=== PATIENT | female | born 1975 | race Two or more races ===

== ENCOUNTER 2024-05-05 20:57 | Emergency (ER) | payer MEDICAID, SELFPAY ==
[2024-05-05 21:06] VITALS: BP 155/83; PULSE 70; RESP 19; TEMP 37.7; O2SAT 98
--- NOTE | 2024-05-05 21:22 | PD.EDABDPN ---
ED Abdominal Pain RME/HPI General Chief Complaint: Abdominal Pain Stated complaint: LOWER ABD PAIN Time seen by provider: 05/05/24 21:10 Arrival date/time: 05/05/24 20:57 RME / HPI RME / HPI narrative: This section includes all my notes and documentations, including HPI, PE, and ED course. Soy Adam MD HPI: 48yo female presents to the ED for a chief complaint of lower abdominal pain x 2 days. Has difficulty localizing the pain further. Patient describes the pain as stabbing in nature. No radiation or migration. She reports associated chills. She denies any N/V, fever or any other associated symptoms. Denies any history of similar symptoms. PSH includes cholecystectomy. No other complaints reported. ROS: All negative except as documented in HPI. Physical Exam: General: Alert and oriented. Appears uncomfortable. Eyes: Conjunctivae and lids clear. ENT: No nasal congestion. Neck: Supple. Heart: RRR. Lungs: No respiratory distress. Good air movement. No rhonchi, wheezing, rales. Abdomen: Soft with tenderness, difficult to localize. Legs: No clubbing, cyanosis, edema. Skin: Warm and dry. Neuro: Alert and oriented X 3. I reviewed all diagnostic test results. My review of the pelvic US report is no acute findings. My review of the abdominal CT report is umbilical hernia. Blood tests and urine tests unremarkable. At this point, diagnoses include abdominal pain, most likely due to umbilical hernia. Treatment here included Zofran, Ibuprofen, Tylenol with Codeine, NS, Dilaudid. Significant improvement noted. Recommended more outpatient workup. Based on my best medical judgment, made decision no further evaluation or treatment indicated at this time. Patient understands and agrees to the discharge instructions customized and printed, see below. Discharge Instructions from Dr. Adam printed for you: 1. After extensive evaluation, there is no emergency such as appendicitis needing urgent surgery. 2. You have 3 cm umbilical hernia, this probably caused her severe pain, see attached handout. 3. Zofran for nausea/vomiting. Tylenol with codeine for severe pain. 4. Avoid increased pressure in your abdomen, from lifting heavy objects or pushing too hard during bowel movements. 5. See a private doctor on 05/07/2024 for recheck and further care. Ask to review all test results and official radiology reports, to make sure you receive all necessary follow-ups and monitoring. Ask for help with referrals to see specialists, such as general surgeon and stars specialist. 6. Seek immediate medical care with worsening or with any concerns. Soy Adam MD Related Data Previous Rx's ?Medication ?Instructions ?Recorded acetaminophen 300 mg-codeine 30 mg 2 tab PO TID PRN pain #20 tabs 05/06/24 tablet ondansetron 4 mg disintegrating 4 mg PO TID PRN nausea and 05/06/24 tablet vomiting 5 days #10 tabs Allergies Allergy/AdvReac Type Severity Reaction Status Date / Time No Known Allergies Allergy Verified 05/05/24 20:58 Review of Systems Review of Systems Systems Reviewed: All systems reviewed, normal except as documented Past Medical History Social History SMOKING STATUS: Never smoker ED Exam Narrative Physical exam: As noted in HPI. Course Quality Measures none Orders Category Date Time Status Saline [Insert IV] NOW Care 05/05/24 23:[address] abdomen pelvis wo con Stat Exams 05/05/24 21:23 Completed US pelvic complete Stat Exams 05/05/24 23:19 Taken CBC Stat Lab 05/05/24 21:41 Completed CMP [Comprehensive Metabolic Panel] Stat Lab 05/05/24 21:41 Completed HCG Qualitative,Urine Stat Lab 05/05/24 22:35 Completed Magnesium Stat Lab 05/05/24 21:41 Completed UA, C/S IF [Urinalysis, C/S if Indicated] Stat Lab 05/05/24 22:35 Completed Urine Culture Stat Lab 05/05/24 22:35 Received ACETAMINOPHEN w/COD 300-30 [Tylenol w/Cod #3] Med 05/05/24 21:27 Discontinued 2 tab PO X1 ONE HYDROmorphone INJ [Dilaudid Inj] Med 05/05/24 23:19 Discontinued 1 mg IVP X1 ONE Ibuprofen Tab [Motrin Tab] Med 05/05/24 21:27 Discontinued 800 mg PO X1 ONE Ondansetron Inj [Zofran Inj] Med 05/05/24 23:19 Discontinued 4 mg IV X1 ONE Ondansetron Odt [Zofran Odt] Med 05/05/24 21:27 Discontinued 4 mg PO X1 ONE Sodium Chloride 0.9% 1000 ml [Ns] 1,000 ml Med 05/05/24 23:19 Discontinued IV 999 mls/hr Vital Signs Vital signs: Vital Signs Temperature 99.8 F 05/05/24 21:06 Pulse Rate 70 05/05/24 21:06 Respiratory Rate 19 05/05/24 21:06 Blood Pressure 155/83 H 05/05/24 21:06 Pulse Oximetry (%) 98 05/05/24 21:06 Oxygen Delivery Method Room Air 05/05/24 21:06 Abdominal Pain MDM MDM Narrative MDM Narrative:: Scribe Attestation: 05/05/24 Love Zacarias am scribing for and in the presence of Dr. Adam. Patient data External records reviewed:: [facility] previous records (Per chart review, patient has no previous ED visits or admissions to this facility.) Clinical information provided by:: patient Social determinants that could affect healthcare access:: none Patient has the following chronic illnesses:: none How is presenting disease/condition affected by chronic disease/condition?: no chronic disease Evaluation data The following diagnostics were reviewed and interpreted by me:: lab results and radiology exam(s) Lab and/or radiology exams considered but not ordered:: none Interpretation Summary: Umbilical hernia Medications / Prescriptions Medications or Prescriptions considered but not ordered:: none Medication administrations:: Medication Administration History Discontinued Medications Acetaminophen/Codeine Phosphate (Acetaminophen W/Cod 300-30 Tablet) 2 tab PO X1 ONE Stop: 05/05/24 21:28 Last Admin: 05/05/24 21:42 Dose: 2 tab Documented By: EO Hydromorphone HCl (Hydromorphone Inj 2 Mg/Ml Vial) 1 mg IVP X1 ONE Stop: 05/05/24 23:20 Last Admin: 05/05/24 23:57 Dose: 1 mg Documented By: RAFA Sodium Chloride (Ns) 1,000 mls @ 999 mls/hr IV .Q1H1M ONE Stop: 05/06/24 00:19 Last Infusion: 05/06/24 01:13 Dose: Infused Documented By: Admin: 05/05/24 23:57 Dose: 999 mls/hr Documented By: RAFA Ibuprofen (Ibuprofen Tab 400 Mg Tablet) 800 mg PO X1 ONE Stop: 05/05/24 21:28 Last Admin: 05/05/24 21:42 Dose: 800 mg Documented By: EO Ondansetron HCl (Ondansetron Odt 4 Mg Tabrap) 4 mg PO X1 ONE; Protocol Stop: 05/05/24 21:28 Last Admin: 05/05/24 21:43 Dose: 4 mg Documented By: EO Ondansetron HCl (Ondansetron Inj 2 Mg/Ml Inj 2 Ml) 4 mg IV X1 ONE; Protocol Stop: 05/05/24 23:20 Last Admin: 05/05/24 23:57 Dose: 4 mg Documented By: KD Zofran, Ibuprofen, Tylenol with Codeine, NS, Dilaudid Consultations Consultation(s) initiated? (list below): No Diagnosis Differential diagnosis abdominal pain: acute appendicitis, calculus of kidney, constipation, diverticulitis, endometriosis, gastroenteritis and small bowel obstruction Most likely diagnosis given after review of the tests above:: Umbilical hernia Admission Indicated Admission indicated?: not indicated Explain why admission is indicated or not indicated:: No criteria for admission. Admission Request Was there a request for admission?: No Disposition Plan Disposition Plan: Discharge Discharge Attestation Discharge Attestation: The patient and all family members were given an opportunity to ask questions and understood the discharge instructions. Discharge instructions specifically effects, indications for sooner follow up or return to the emergency department, and the expected course of current diagnosis. Patient condition: Stable Discharge Plan Plan Patient Disposition: HOME (Self Care) Prescriptions/Referrals Prescriptions/Med Rec: New acetaminophen-codeine 300-30 mg tablet 2 tab PO TID MDD 6 PRN (Reason: pain) Qty: 20 0RF ondansetron 4 mg tablet,disintegrating 4 mg PO TID PRN (Reason: nausea and vomiting) 5 Days Qty: 10 0RF Referrals: Charles Gray PA-C [Primary Care Provider] - In 1 week Problem List Clinical Impression: Abdominal pain Patient/Caregiver Discharge Instructions Discharge Activity: activity as tolerated Education Materials: ED Hernia (Adult) Additional Instructions: Discharge Instructions from Dr. Adam printed for you: 1. After extensive evaluation, there is no emergency such as appendicitis needing urgent surgery. 2. You have 3 cm umbilical hernia, this probably caused her severe pain, see attached handout. 3. Zofran for nausea/vomiting. Tylenol with codeine for severe pain. 4. Avoid increased pressure in your abdomen, from lifting heavy objects or pushing too hard during bowel movements. 5. See a private doctor on 05/07/2024 for recheck and further care. Ask to review all test results and official radiology reports, to make sure you receive all necessary follow-ups and monitoring. Ask for help with referrals to see specialists, such as general surgeon and stars specialist. 6. Seek immediate medical care with worsening or with any concerns. Instrucciones de sherin del Dr. Adam impresas para usted: 1. Despu?s de wilver evaluaci?n exhaustiva, no hay ninguna emergencia jakob apendicitis que requiera cirug?a urgente. 2. Tiene wilver hernia umbilical de 3 cm, esto probablemente le caus? un dolor intenso, consulte el folleto adjunto. 3. Zofran para n?useas/v?mitos. Tylenol con code?na para el dolor intenso. 4. Evite aumentar la presi?n en el abdomen, por levantar objetos pesados ??o empujar demasiado tejas jessica las deposiciones. 5. Consulte a un m?dico privado el 07/05/2024 para volver a controlarse y recibir m?s atenci?n. Pida que revisen todos los resultados de las pruebas y los informes radiol?gicos oficiales, para asegurarse de recibir todos los seguimientos y la supervisi?n necesarios. Pida ayuda con las derivaciones para yuri a especialistas, jakob un cirujano general y un ginec?logo. 6. Busque atenci?n m?dica inmediata si empeora o si tiene alguna inquietud. Print Language: Hebrew Stand Alone Forms: Daja Award Info., Patient Portal Info Letter
--- NOTE | 2024-05-05 21:23 | XR_ITS ---
Examination: CT abdomen and pelvis without contrast. Coronal 3-D reconstructions. Sagittal 2-D reconstructions. Date and time of exam:May 05, 2024 1125 hrs. Indications: Abdominal pain several years, worse today CTDI: vol (mGy): 16.2 DLP: (mGycm): 978 Technique: Axial images of the abdomen have been obtained, 3 mm slice thickness Intravenous contrast material has not been administered. Low dose protocols were performed. One or more of the following dose reduction techniques were used; automated exposure control, adjustment of the mA and/or KV according to patient size, use of iterative reconstruction technique. Findings: No focal liver or splenic lesions No pancreatic mass Absent gallbladder No renal or ureteral calculi, no hydronephrosis Normal appendix Aorta normal size No bowel obstruction or diverticulitis 3 cm fat-containing umbilical hernia Retroverted uterus with enlarged fundus No adnexal mass Urinary bladder intact Advanced degenerative disc disease L5-S1 Impression: No renal or ureteral calculi, no hydronephrosis Normal appendix No bowel obstruction Colonic diverticulosis, no diverticulitis Mildly enlarged fundus of uterus 3 cm fat-containing umbilical hernia
[2024-05-05] MEDS: ACETAMINOPHEN w/COD 300-30 TABLET 2 TAB PO (21:42)
[2024-05-05] MEDS: IBUPROFEN TAB 400 MG TABLET 800 MG PO (21:42)
[2024-05-05] MEDS: ONDANSETRON ODT 4 MG TABRAP PO (21:43)
[2024-05-05 21:55] LABS: Basophils % (Auto) 0 % (0-2.5); Eosinophils # (Auto) 0.3 Thou/mm3 (0.0-0.5); Eosinophils % (Auto) 3 % (0-10); Hemoglobin 13.7 g/dL (12.0-16.0); Immature Granulocytes % (Auto) 0 % (0-0); Immature Granulocytes Auto 0.04 Thou/mm3 (0.00-0.00); Lymphocytes # (Auto) 3.1 Thou/mm3 (1.0-4.8); Lymphocytes % (Auto) 34 % (10-50); Mean Corpuscular HGB Conc 35.1 g/dl (31.0-37.0); Mean Corpuscular Hemoglobin 31.4 pg (25.0-35.0); Mean Corpuscular Volume 89 fL (80-100); Monocytes # (Auto) 0.4 Thou/mm3 (0.0-0.8); Monocytes % (Auto) 5 % (0-12); Neutrophils # (Auto) 5.3 Thou/mm3 (1.8-7.7); Neutrophils % (Auto) 58 % (37-80); Nucleated Red Blood Cell % 0 /100 WBC (0); Platelet Count 284 Thou/mm3 (140-440); RDW Standard Deviation 39.4 fL (36.4-46.3); Red Blood Count 4.37 Miln/mm3 (4.00-5.20); White Blood Count 9.1 Thou/mm3 (3.6-11.0)
[2024-05-05 22:13] LABS: Alanine Aminotransferase 28 U/L (10-49); Albumin, Serum 4.5 gm/dL (3.5-5.0); Albumin/Globulin Ratio 1.6 (1.2-2.2); Alkaline Phosphatase 73 U/L (46-116); Anion Gap 8 (7-16); Aspartate Amino Transferase 21 U/L (0-34); BUN/Creatinine Ratio 17 Ratio (12-20); Bilirubin,Total 0.4 mg/dL (0.3-1.2); Blood Urea Nitrogen 12 mg/dL (9-23); Calcium 9.9 mg/dL (8.3-10.6); Calcium (Corrected) 9.9 mg/dL (8.5-10.1); Carbon Dioxide 27.5 mMol/L (20.0-31.0); Chloride 108 mMol/L (98-107); Creatinine (Component) 0.7 mg/dL (0.6-1.3); Globulin 2.9 gm/dL (2.3-3.5); Glucose 131 mg/dL (74-106); Magnesium 2.1 mg/dL (1.6-2.6); Osmolality,Calculated 286 (275-295); Sodium 143 mMol/L (136-145); Total Protein 7.4 gm/dL (5.7-8.2); eGFR > 60 See Note
[2024-05-05 22:36] VITALS: BP 133/81; PULSE 69; RESP 18; TEMP 36.5; O2SAT 96
[2024-05-05 22:44] LABS: Collection Type, Urine Clean Catch
[2024-05-05 22:48] LABS: HCG Qualitative,Urine Negative
[2024-05-05 22:50] LABS: Bilirubin,Urine Negative (Negative); Clarity,Urine Clear (Clear/Hazy); Color,Urine Lt-Yellow (Lt Yel-Yel); Glucose, Urine Negative (Negative); Ketones,Urine Negative (Negative)
[2024-05-05 22:51] LABS: Blood,Urine Negative (Negative); Culture Indicated,Urine Yes; Leukocyte Esterase,Urine Positive (Negative); Nitrite,Urine Negative (Negative); PH,Urine 7.5 (5.0-7.0); Protein,Urine Negative (Neg - Trace); RBC,Urine 1 /hpf (0-3); Squamous Epithelial Cell,Urine 6 /hpf (0-5); WBC,Urine 14 /hpf (0-5)
--- NOTE | 2024-05-05 23:19 | XR_ITS ---
Examination: Pelvic ultrasound, transabdominal, complete Technique: Transabdominal ultrasound of the pelvis performed using grayscale imaging Date and time of exam: April 2024 at 0106 hrs. Indication: Pelvic pain radiating to the back beginning 2 days ago Findings: Uterus 9.3 x 5.7 x 6.5 cm Endometrial stripe 12 mm No uterine mass or intrauterine gestation Right ovary 2.5 x 2.6 cm arterial flow Left ovary obscured by bowel gas Impression: Limited study No uterine or adnexal mass demonstrated
[2024-05-05 23:40] VITALS: BP 150/80; PULSE 68; RESP 18; TEMP 36.7; O2SAT 95
[2024-05-05] MEDS: ONDANSETRON INJ 2 MG/ML INJ 2 ML 4 MG IV (23:57)
[2024-05-05] MEDS: HYDROmorphone INJ 2 MG/ML VIAL 1 MG IVP (23:57)
[2024-05-05] MEDS: SODIUM CHLORIDE 0.9% 1000 ML 1,000 ML 999 ML IV (23:57)
--- NOTE | 2024-05-06 02:14 | PRELIM_ITS ---
Pelvic ultrasound (transabdominal). May 06, 2024 0106 hours Clinical history: Severe pelvic pain, LMP 04/13/2024 Comparison: None Findings: The evaluation is limited due to overlying bowel gas and body habitus. The uterus is retroverted measuring 9.3 x 5.7 x 6.5 cm. The endometrium is unremarkable and measures 1.2 cm. The right ovary measures 2.5 x 2.5 x 2.6 cm and is unremarkable. The right ovary demonstrates color flow and spectral waveforms on Doppler evaluation. The left ovary is obscured by bowel gas and is not evaluated on this examination. There is no adnexal mass. There is no free fluid on the submitted images. Impression: Limited evaluation as described. No sonographic evidence of right ovarian torsion is demonstrated on the submitted images. Nonvisualized left ovary. Report Electronically Signed By: Marty Quiñones 05/06/2024 2:13:46 AM [EST]
[2024-05-06 02:48] VITALS: BP 124/72; PULSE 73; RESP 18; O2SAT 95
== END 2024-05-06 02:49 | disposition home or self-care (01) ==
PROVIDERS: Emergency Provider Emergency Medicine; PCP Physician Assistant
DX: K42.9 Umbilical hernia without obstruction or gangrene (principal); R10.2 Pelvic and perineal pain
CPT/HCPCS: 36415; 74176; 76856; 80053; 81001; 81025; 83735; 85025; 87086; 96361; 96374; 96375; 99284; J2405; J3490; J7030; Q0162; A9270

== ENCOUNTER 2024-06-09 09:25 | Day surgery (SDC) | payer MEDICAID, SELFPAY ==
--- NOTE | 2024-06-08 07:00 | EKG_ITS ---
[facility] Test Date: 2024-06-08 Pat Name: MICHELINE GERMAIN Department: Room: - Gender: Female Student Life Coordinator: RTSJC : 1975 Requested By: Fernandez Guerra Order Number: [id number] Reading MD: Fernandez Guerra Measurements Intervals [place] Rate: 55 P: 22 FL: 159 QRS: -3 QRSD: 92 T: 6 QT: 454 QTc: 438 Interpretive Statements SINUS BRADYCARDIA MODERATE VOLTAGE CRITERIA FOR LVH, CONSIDER NORMAL VARIANT [MEETS CRITERIA IN ONE OF: R(aVL), S(V1), R(V5), R(V5/V6)+S(V1)] No previous ECG available for comparison /store/S0/[id number].pdf
[2024-06-08 07:14] VITALS: BMI 40.0
[2024-06-08 08:50] LABS: Basophils # (Auto) 0.1 Thou/mm3 (0.0-0.2); Basophils % (Auto) 1 % (0-2.5); Eosinophils # (Auto) 0.4 Thou/mm3 (0.0-0.5); Eosinophils % (Auto) 5 % (0-10); Hematocrit 41.3 % (36.0-46.0); Hemoglobin 14.3 g/dL (12.0-16.0); Immature Granulocytes % (Auto) 0 % (0-0); Immature Granulocytes Auto 0.01 Thou/mm3 (0.00-0.00); Lymphocytes % (Auto) 44 % (10-50); Mean Corpuscular HGB Conc 34.6 g/dl (31.0-37.0); Mean Corpuscular Hemoglobin 31.2 pg (25.0-35.0); Mean Corpuscular Volume 90 fL (80-100); Monocytes # (Auto) 0.4 Thou/mm3 (0.0-0.8); Monocytes % (Auto) 5 % (0-12); Neutrophils # (Auto) 3.1 Thou/mm3 (1.8-7.7); Neutrophils % (Auto) 45 % (37-80); Nucleated Red Blood Cell % 0 /100 WBC (0); Platelet Count 327 Thou/mm3 (140-440); RDW Standard Deviation 41.1 fL (36.4-46.3); Red Blood Count 4.59 Miln/mm3 (4.00-5.20); White Blood Count 6.8 Thou/mm3 (3.6-11.0)
[2024-06-08 09:00] LABS: Anion Gap 9 (7-16); BUN/Creatinine Ratio 20 Ratio (12-20); Blood Urea Nitrogen 12 mg/dL (9-23); Calcium 9.5 mg/dL (8.3-10.6); Chloride 112 mMol/L (98-107); Creatinine (Component) 0.6 mg/dL (0.6-1.3); Glucose 124 mg/dL (74-106); Osmolality,Calculated 293 (275-295); Potassium 3.9 mMol/L (3.4-5.1); Sodium 147 mMol/L (136-145); eGFR > 60 See Note
[2024-06-08 09:06] LABS: HCG,Qualitative Serum Negative
[2024-06-09] VITALS (12 sets, daily range): BP systolic 125–172; BP diastolic 74–99; PULSE 72–82; RESP 13–20; TEMP 36.2–36.9; O2SAT 94–99; BMI 39.8
[2024-06-09] MEDS: RINGERS LACTATED 1000 ML 1,000 ML 20 ML IV (10:10)
--- NOTE | 2024-06-09 11:48 | PD.SUROPNT ---
Date of Procedure 06/09/24 Pre Op Diagnosis Incarcerated umbilical hernia Post Op Diagnosis Incarcerated umbilical hernia Procedure Laparoscopic assisted repair of incarcerated umbilical hernia with mesh Findings An approximately 3.5 cm umbilical hernia defect with incarcerated omentum Procedure Description Patient brought into the operating room in supine position. After administration of general orotracheal anesthesia, patient's abdomen prepped and draped in standard surgical manner. A 5 mm incision was made in left upper quadrant and Veress needle was inserted, pneumoperitoneum was obtained to 15 mmHg. The Veress needle was removed and a 5 mm trocar was placed. Laparoscopic camera was inserted, under direct visualization a laparoscopic camera a 5 mm trocar placed in left lower quadrant and additional 5 mm trocar placed in right lower quadrant. The abdomen was inspected and patient was noted to have an incarcerated umbilical hernia with omentum being incarcerated within the hernia sac. The hernia sac was excised with Harmonic scalpel laparoscopically and the omentum was reduced. At this point approximately 4 cm semicircular incision was made superior to the umbilicus and dissection was carried to subcutaneous tissue. The hernia sac was circumferentially dissected off surrounding tissue and excised from surrounding abdominal fascia. The fascia was cleared from overlying tissue. The defect was approximately 3.5 cm in diameter. A 4 x 6 elliptical shape proceed mesh was used to cover the defect. 2 tacking sutures using 0 Ethibond placed the 2 ends of the mesh and the mesh was placed inside the abdominal cavity through the hernia defect. The defect was closed with interrupted sutures using 0 Ethibond. The umbilicus was tacked into the underlying abdominal fascia was 2-0 Vicryl suture in subcutaneous tissue closed with interrupted sutures of 2-0 Vicryl. The abdomen was once again insufflated. 2 tacking sutures of the 2 ends of the mesh were retrieved through the previously marked abdominal wall site. Sutures were tightened and the mesh was further secured into anterior abdominal wall with secure strap tacking device. The mesh was covering the defect with at least 4 cm circumferential margin. Hemostasis was adequate and satisfactory. Instruments and trocars removed, pneumoperitoneum was evacuated and the incisions closed 4-0 Monocryl subcuticular fashion. Instruments, needles and sponge counts were reported to be correct ?2 patient tolerated the procedure well. Patient was extubated, breathing spontaneously and without difficulty and was transferred to postanesthesia care in stable condition. Anesthesia GETA and local Pathology / specimen Other (Hernia sac and contents) Estimated Blood Loss 10 Condition Stable Disposition PACU Surgeon Fernandez Guerra MD Surgical Staff Operation Date: 06/09/24 11:45 Case Staff Anesthesiologist: Yifan Ramirez RNpower engineer: Cheryle Gusman
--- NOTE | 2024-06-09 11:56 | SUR.PHASEI ---
1156: Pt. wakes to name then drifts back to sleep, vitals stable, breathing unlabored, no complaint of pain or nausea, x4 dermabond sites to ABD CDI, dressing to umbillicus CDI, no active bleed noted, report recieved from MD Ramirez and Jordin CUELLAR.
[2024-06-09] MEDS: fentaNYL CIT INJ 50 mCg/ML AMP 2ML IV ×2 (12:16→12:24)
[2024-06-09] MEDS: KETOROLAC INJ 30 MG/ML VIAL IVP (12:36)
--- NOTE | 2024-06-09 12:45 | SUR.PHASEII ---
abdominal binder applied. report from nurse garcia. and daughter at bedside. vss. breathing even and unlabored. dressing cdi.
[2024-06-09] MEDS: HYDROmorphone INJ 2 MG/ML VIAL 0.5 MG IV ×2 (13:21→13:44)
--- NOTE | 2024-06-09 13:28 | SUR.PHASEII ---
report to nurse garcia. pt medicated for pain. discharge pending.
--- NOTE | 2024-06-09 14:05 | SUR.PHASEII ---
1405: Pt. AAOx4, vitals stable, breathing unlabored, complaint of pain pt. states pain is a lot more tolerable though (had to keep pt. longer than usual d/t her having a lot of discomfort prior to DC), no complaint of nausea, dressing to ABD CDI, ABD Binder in place,pt. tolerated sips of soda well, pt. ambulated to wheelchair with assist, discharge instructions provided/given by Amanda CUELLAR. Pt. left with all personal belongings.
== END 2024-06-09 14:05 | disposition home or self-care (01) ==
PROVIDERS: Anesthesiology; PCP Physician Assistant; Referring Provider Surgery; Visit Provider Surgery
PROC: 0WQF4ZZ Repair Abdominal Wall, Percutaneous Endoscopic Approach (ICD-10-PCS; CPT 49594; principal; 2024-06-09 11:30)
DX: K42.0 Umbilical hernia with obstruction, without gangrene (principal); Z01.810 Encounter for preprocedural cardiovascular examination
CPT/HCPCS: 49594; 36415; 80048; 84703; 85025; 93005; A4217; A4649; C1781; J0131; J0690; J1100; J1885; J2704; J2710; J2765; J3010; J3490; J7120; J1596